=== PATIENT | female | born 1990 | race Caucasian/White ===

== ENCOUNTER 2019-03-21 18:21 | Emergency (ER) | payer MEDICAID ==
[~2019-03-21] VITALS: Ht 160 cm; Wt 61.3 kg
[~2019-03-21 18:21] MED LIST: CEPH-443 PO; IBUP-1542 PO
[2019-03-21 18:23] VITALS: Ht 160 cm; Wt 61.3 kg
--- NOTE | 2019-03-21 20:26 | ERD ---
ER Documentation Chief Complaint Chief Complaint LEFT FLANK PAIN X1DAY; HX OF KIDNEY STONES HPI 28-year-old female presenting with left flank pain that started today. She states that she has a history of a couple of kidney infections, always on the left side. Pain is severe, 8 out of 10, aching and stabbing, constant, with no alleviating factors. Exacerbated by movement. She states she never has dysuria hematuria or any other warning signs. She states that infection usually goes immediately to her kidney. She has refused hospitalizations in the past because she has several kids at home. Currently she feels it is very early in the course of her infection and wants to go home with oral antibiotics and does not want to be admitted in any case. She denies any fever, chills, nausea, vomiting. ROS All systems reviewed and are negative except as per history of present illness. Medications Home Meds Active Scripts Cephalexin* (Keflex*) 500 Mg Capsule, 500 MG PO QID for 10 Days, CAP Prov:KERVIN MIKE MD 03/21/19 Ibuprofen* (Motrin*) 600 Mg Tab, 600 MG PO Q6H PRN for PAIN AND OR ELEVATED TEMP, #30 TAB Prov:KERVIN MIKE MD 03/21/19 Allergies Allergies: Coded Allergies: acetaminophen (Verified Allergy, Unknown, 03/21/19) hydrocodone (Verified Allergy, Unknown, 03/21/19) PMhx/Soc History of Surgery: Yes (tubal ligation) Hx Respiratory Disorders: Yes (asthma) Hx Miscellaneous Medical Probl: Yes (frequent UTIs) Hx Alcohol Use: Yes (once every other month) Hx Substance Use: Yes (marijuana daily) Hx Tobacco Use: Yes (1/2 pack daily) Smoking Status: Current every day smoker FmHx Family History: No diabetes Physical Exam Vitals Vital Signs Date Temp Pulse Resp B/P (MAP) Pulse Ox O2 O2 Flow FiO2 Time Delivery Rate 03/21/19 99.0 65 16 111/60 98 Room Air 21:21 (77) 03/21/19 99.1 79 16 108/75 100 Room Air 20:03 (86) 03/21/19 99.3 120 20 127/87 99 18:23 (100) Physical Exam Const: No acute distress, well-appearing, nontoxic Head: Atraumatic Eyes: Normal Conjunctiva ENT: Normal External Ears, Nose and Mouth. Neck: Full range of motion. No meningismus. Resp: Clear to auscultation bilaterally Cardio: Tachycardic with regular rhythm, no murmurs Abd: Soft, non tender, non distended. Normal bowel sounds Skin: No petechiae or rashes Back: Moderate left CVA tenderness Ext: No cyanosis, or edema Neur: Awake and alert Psych: Normal Mood and Affect Result Diagram: 03/21/19195803/21/191958 Results 24 hrs Laboratory Tests Test 03/21/19 19:50 03/21/19 19:59 03/21/19 20:07 Urine Color YELLOW Urine Clarity CLOUDY Urine pH 9.0 Urine Specific [place] 1.008 Urine Ketones 2+ mg/dL Urine Nitrite NEGATIVE mg/dL Urine Bilirubin NEGATIVE mg/dL Urine Urobilinogen NEGATIVE mg/dL Urine Leukocyte Esterase 3+ [place]/ul Urine Microscopic RBC 17 /HPF Urine Microscopic WBC > 182 /HPF Urine Squamous Epithelial Cells FEW /HPF Urine Bacteria FEW /HPF Urine Mucus FEW /HPF Urine Hemoglobin 2+ mg/dL Urine Glucose NEGATIVE mg/dL Urine Total Protein 2+ mg/dl White Blood Count 17.8 10^3/ul Red Blood Count 4.11 10^6/ul Hemoglobin 12.8 g/dl Hematocrit 38.0 % Mean Corpuscular Volume 92.5 fl Mean Corpuscular Hemoglobin 31.1 pg Mean Corpuscular 33.7 g/dl Hemoglobin Concent Red Cell Distribution Width 12.6 % Platelet Count 278 10^3/UL Mean Platelet Volume 10.3 fl Immature Granulocytes % 0.500 % Neutrophils % 79.0 % Lymphocytes % 12.7 % Monocytes % 6.3 % Eosinophils % 1.1 % Basophils % 0.4 % Nucleated Red Blood Cells % 0.0 /100WBC Immature Granulocytes # 0.090 10^3/ul Neutrophils # 14.1 10^3/ul Lymphocytes # 2.3 10^3/ul Monocytes # 1.1 10^3/ul Eosinophils # 0.2 10^3/ul Basophils # 0.1 10^3/ul Nucleated Red Blood Cells # 0.0 10^3/ul Sodium Level 139 mmol/L Potassium Level 3.3 mmol/L Chloride Level 105 mmol/L Carbon Dioxide Level 26 mmol/L Anion Gap 8 Blood Urea Nitrogen 8 mg/dl Creatinine 0.72 mg/dl Est Glomerular Filtrat > 60 mL/min Rate mL/min Glucose Level 95 mg/dl Calcium Level 9.9 mg/dl POC Beta HCG, Qualitative NEGATIVE Current Medications Medications Dose Sig/Raya Start Time Status Last (Trade) Ordered Route PRN Stop Time Admin Dose Reason Admin Ceftriaxone 1 gm ONCE ONCE 03/21/19 DC 03/21/19 Sodium IM 20:30 03/21/19 20:10 (Rocephin) 20:31 Ibuprofen 600 mg ONCE ONCE 03/21/19 DC 03/21/19 (Motrin) PO 20:30 03/21/19 20:10 20:31 Procedures/MDM EMERGENT LABS AND DIAGNOSTIC STUDIES: Lab Results above were reviewed and interpreted by me. CBC: Leukocytosis, concerning for infection BMP: No evidence of clinically significant electrolyte abnormality, acidosis, renal failure, hypoglycemia UA: + evidence of infection Initial Nursing notes reviewed. Previous Medical Records requested via the Electronic Health Record. EMERGENCY DEPARTMENT COURSE / MEDICAL DECISION MAKING: Patient is presenting with signs and symptoms of sepsis and pyelonephritis. She was given a shot of Rocephin here. Basic work-up was done. I did again offer the patient admission but she would rather go home. I feel this is an acceptable plan at this time. I gave her a prescription for Keflex as this is helped her in the past. I encouraged her to return for any worsening symptoms or if she is not improving as expected. Patient understands discharge plan. Patient's blood pressure was elevated (>120/80) but appears stable without evidence of hypertensive emergency or urgency. The patient was counseled about the risks of hypertension and urged to pursue outpatient monitoring and therapy within a week with their primary care physician. Departure Diagnosis: Primary Impression: Pyelonephritis Condition: Stable Patient Instructions: Pyelonephritis, Female (Adult) Referrals: COMMUNITY CLINICS YOU HAVE RECEIVED A MEDICAL SCREENING EXAM AND THE RESULTS INDICATE THAT YOU DO NOT HAVE A CONDITION THAT REQUIRES URGENT TREATMENT IN THE EMERGENCY DEPARTMENT. FURTHER EVALUATION AND TREATMENT OF YOUR CONDITION CAN WAIT UNTIL YOU ARE SEEN IN YOUR DOCTORS OFFICE WITHIN THE NEXT 1-2 DAYS. IT IS YOUR RESPONSIBILITY TO MAKE AN APPOINTMENT FOR FOLOW-UP CARE. IF YOU HAVE A PRIMARY DOCTOR --you should call your primary doctor and schedule an appointment IF YOU DO NOT HAVE A PRIMARY DOCTOR YOU CAN CALL OUR PHYSICIAN REFERRAL HOTLINE AT IF YOU CAN NOT AFFORD TO SEE A PHYSICIAN YOU CAN CHOSE FROM THE FOLLOWING [facility] [address] [facility] [address] [facility] [address] [facility] [address] [facility] [address] [facility]. [facility] [address] [facility]. [facility] YOU HAVE RECEIVED A MEDICAL SCREENING EXAM AND THE RESULTS INDICATE THAT YOU DO NOT HAVE A CONDITION THAT REQUIRES URGENT TREATMENT IN THE EMERGENCY DEPARTMENT. FURTHER EVALUATION AND TREATMENT OF YOUR CONDITION CAN WAIT UNTIL YOU ARE SEEN IN YOUR DOCTORS OFFICE WITHIN THE NEXT 1-2 DAYS. IT IS YOUR RESPONSIBILITY TO MAKE AN APPOINTMENT FOR FOLOW-UP CARE. IF YOU HAVE A PRIMARY DOCTOR --you should call your primary doctor and schedule and appointment IF YOU DO NOT HAVE A PRIMARY DOCTOR YOU CAN CALL OUR PHYSICIAN REFERRAL HOTLINE AT . IF YOU CAN NOT AFFORD TO SEE A PHYSICIAN YOU CAN CHOSE FROM THE FOLLOWING [facility]: [facility] [address] [place] [address] [facility] [address] [place] [address] [facility] [address] [place] [address] Additional Instructions: Return to the ER if you are having any worsening symptoms or you are not improving as expected. KERVIN MIKE MD Mar 21, 2019 20:26
[2019-03-21] MEDS ORDERED: IBUPROFEN 600 MG TAB PO ONE (20:30)
[2019-03-21] MEDS ORDERED: CEFTRIAXONE 1 GM INJ IM ONE (20:30)
[2019-03-21 21:21] VITALS: BP 111/60; PULSE 65; RESP 16
== END 2019-03-21 21:26 | disposition home or self-care (01) ==
LOC: E/R 18:21
DX: N12 Tubulo-interstitial nephritis, not specified as acute or chronic (principal); J45.909 Unspecified asthma, uncomplicated; F17.210 Nicotine dependence, cigarettes, uncomplicated
CPT/HCPCS: 80048; 81001; 81025; 85025; 96372; J0696; Z7502; Z7610